=== PATIENT | male | born 1960 | race Caucasian/White ===

== ENCOUNTER 2018-07-08 13:42 | Emergency (ER) | payer OTHER ==
[~2018-07-08] VITALS: Ht 188 cm; Wt 95.3 kg
[2018-07-08 14:44] LABS: ABSOLUTE NEUTROPHILS 10.1 thou/uL (1.4-8.2); BASOPHILS 0.4 % (0.0-2.0); HEMATOCRIT 54.9 % (42.0-52.0); LYMPHOCYTES 9.1 % (24.0-44.0); MCH 30.8 pg (26.0-34.0); MCHC 34.5 g/dL (28.0-37.0); MCV 89.4 fL (80.0-100.0); MONOCYTES 6.7 % (1.0-8.0); PLATELET COUNT 206 thou/uL (150-400); POLYS 83.8 % (36.0-66.0); RBC 6.15 mil/uL (4.50-6.00); RDW 12.5 % (10.5-14.5)
[2018-07-08 14:55] LABS: ANION GAP 15 mmol/L (7-16); BUN 44 mg/dL (7-18); CALCIUM 9.5 mg/dL (8.5-10.1); CHLORIDE 100 mmol/L (98-107); CO2 22 mmol/L (21-32); CREATININE 1.8 mg/dL (0.7-1.3); GLUCOSE 150 mg/dL (74-106); POTASSIUM 3.2 mmol/L (3.5-5.1); SODIUM 137 mmol/L (136-145)
[2018-07-08 14:57] LABS: APTT 29.4 Seconds (24.5-32.8); INR 1.1; PROTIME 11.1 Seconds (9.3-11.4)
[2018-07-08] MEDS ORDERED: TYLENOL EXTRA500 MG PO (15:02)
[2018-07-08 15:03] LABS: ICTOTEST (BILI CONFIRMATORY) Negative (Negative); URINE BILIRUBIN NEGATIVE (Negative); URINE BLOOD TRACE (Negative); URINE CLARITY CLOUDY; URINE COLOR YELLOW; URINE GLUCOSE-RANDOM* NEGATIVE (Negative); URINE KETONES NEGATIVE (Negative); URINE LEUKOCYTES NEGATIVE (Negative); URINE NITRITE NEGATIVE (Negative); URINE PROTEIN (DIPSTICK) 2+ (Negative); URINE SPECIFIC GRAVITY >= 1.030 (1.005-1.035); URINE UROBILINOGEN 0.2 E.U./dl (0.2-1.0)
[2018-07-08] MEDS ORDERED: TIVICAY50 MG PO (15:03)
[2018-07-08] MEDS ORDERED: REXULTI1 MG PO (15:03)
[2018-07-08 15:04] LABS: ALBUMIN 4.7 g/dL (3.4-5.0); LIPASE 55 U/L (73-393); SGOT 37 U/L (15-37); SGPT 68 U/L (30-65); TOTAL BILIRUBIN 0.8 mg/dL (<0.1-1.0); TOTAL PROTEIN 8.4 g/dL (6.4-8.2); TROPONIN-I <0.06 ng/mL (<0.06)
[2018-07-08] MEDS ORDERED: FENOFIBRATE160 MG PO (15:04)
[2018-07-08] MEDS ORDERED: DESCOVY 200-251 EACH PO (15:04)
[2018-07-08] MEDS ORDERED: HYDROCHLOROTHIA25 M2 PO (15:05)
[2018-07-08] MEDS ORDERED: LAMOTRIGINE150 MG PO (15:05)
[2018-07-08] MEDS ORDERED: PRINIVIL20 M1 PO (15:06)
[2018-07-08] MEDS ORDERED: FISH OIL 1,001000 M2 PO (15:07)
[2018-07-08] MEDS ORDERED: CENTRUM SILVER1 EAC4 PO (15:07)
[2018-07-08] MEDS ORDERED: SEROQUEL 50 MG50 MG PO (15:09)
[2018-07-08 15:13] LABS: AMORPHOUS URATES Many /LPF (None Seen); BACTERIA 1-9 Few /HPF (None Seen); CASTS None Seen /LPF (None Seen); SQUAMOUS None Seen /LPF (0-3); URINE RBC None Seen /HPF (0-2); URINE WBC None Seen /HPF (0-5)
[2018-07-08] MEDS ORDERED: COMPAZINE10 MG PO (18:06)
[2018-07-08] MEDS ORDERED: FLAGYL500 M1 PO (18:06)
[2018-07-08] MEDS ORDERED: CIPRO500 MG PO (18:06)
[2018-07-08 18:46] VITALS: BP 144/90
== END 2018-07-08 19:00 | disposition home or self-care (01) ==
LOC: ER 13:42
PROVIDERS: Physician Assistant
DX: E86.0 Dehydration (principal); E87.6 Hypokalemia; D89.9 Disorder involving the immune mechanism, unspecified